=== PATIENT | female | born 1965 | race Caucasian/White ===

== ENCOUNTER 2017-06-02 23:10 | Observation (INO) | payer OTHER ==
[~2017-06-02] VITALS: Ht 160 cm; Wt 65.8 kg
--- NOTE | ~2017-06-02 | HP ---
History And Physical [address] [address] NAME: DEJA BUSH : 67 STATUS : ADM Allyssa PAT#: [id number] AGE: 51 ADM/REG DATE : 06/02/17 MR#: [id number] REPORT SERV DATE: 06/03/17 DICTATED BY: KERRY DIAZ DATE: 06/03/17 REPORT STATUS : Draft TRANSCRIBED BY: CARL DATE: 06/03/17 DATE OF ADMISSION: 06/02/2017 REASON FOR ADMISSION: Acute appendicitis. HISTORY OF PRESENT ILLNESS: Ms. Bush is a 51-year-old female, who presents with abdominal pain, nausea, vomiting for 24 hours. The pain is located in the right lower quadrant. Her white count is 11.1. CT scan shows thickening of the appendix with infiltration of the fat planes consistent with appendicitis. Please see Dr. Rendon's dictation from 06/02 for past medical history, past surgical history, allergies, medications, social history, family history. REVIEW OF SYSTEMS: As stated in the HPI, otherwise, negative. PHYSICAL EXAMINATION: VITAL SIGNS: 98.6, 72, 20, 150/64. GENERAL: Alert, white female, in no acute distress. HEENT: Normocephalic, atraumatic. EOMI. PERRLA. Oropharynx is clear. NECK: Supple. No lymphadenopathy. LUNGS: Clear to auscultation bilaterally. HEART: Regular rate and rhythm. ABDOMEN: Soft. She has tenderness and guarding in the right lower quadrant, but no rebound. EXTREMITIES: Moves all extremities well. NEUROLOGIC: Cranial nerves 2-12 intact. SKIN: No rashes. LABORATORY DATA: White count 11.1, H and H 14 and 40, platelets of 284. Electrolytes within normal range. Creatinine is 0.81. UA negative. CT scan as above. ASSESSMENT AND PLAN: Acute appendicitis. The patient will be n.p.o., IV Zosyn. We discussed lap versus open appendectomy. I have discussed risks, benefits, and alternatives. She understands and is willing to proceed. DAQUAN/CARL Kerry Diaz M.D. / [id number] CC: Kerry Diaz M.D. [address] And Physical [address] [place] [address] NAME: DEJA BUSH : 67 STATUS : ADM Allyssa PAT#: [id number] AGE: 51 ADM/REG DATE : 06/02/17 MR#: [id number] REPORT SERV DATE: 06/03/17 DICTATED BY: KERRY DIAZ DATE: 06/03/17 REPORT STATUS : Draft TRANSCRIBED BY: CARL DATE: 06/03/17 CHRISTIE ALAS
--- NOTE | ~2017-06-02 | OP ---
Record Of Operation [facility] [address] [place]. [address] NAME: DEJA BUSH : 67 STATUS : ADM Allyssa PAT#: [id number] AGE: 51 ADM/REG DATE : 06/02/17 MR#: [id number] REPORT SERV DATE: 06/03/17 DICTATED BY: NINO FONTANA DATE: 06/03/17 REPORT STATUS : Draft TRANSCRIBED BY: MODL DATE: 06/03/17 DATE OF PROCEDURE: 06/03/2017 PREOPERATIVE DIAGNOSIS: Acute appendicitis. POSTOPERATIVE DIAGNOSES: Acute appendicitis. PROCEDURE: Laparoscopic appendectomy. RESIDENT SURGEON: Faustino Levy M.D. ANESTHESIA: General. COMPLICATIONS: None. BLOOD LOSS: 5 mL. SPECIMEN: Appendix. DRAINS: None. INDICATION FOR PROCEDURE: Deja Bush is a 51-year-old woman who presented with a one-day history of right lower quadrant pain. CT scan confirmed acute appendicitis. Risks and benefits of appendectomy including bleeding, infection, injury to bowel, bladder, or ureter, conversion to an open procedure, incisional hernias, risk of anesthesia, heart attacks, stroke, DVT, PE were all discussed with the patient. She understood and wished to proceed. DESCRIPTION OF PROCEDURE: After informed consent was obtained, the patient was taken to the operating room and placed on operating table in supine position. General endotracheal anesthesia was induced by Anesthesia Staff without incident. A time-out was performed verifying the correct patient, position, procedure, equipment, and dosage of preoperative antibiotics. The abdomen was prepped and draped in sterile fashion. Infraumbilical incision made with a knife and carried down bluntly into the fascia. The fascia was grasped and elevated between clamps. The fascia was incised with a knife. Peritoneum was entered bluntly. The trocar was inserted. Abdomen was insufflated without incident. The laparoscope was inserted and it showed no evidence of injury secondary to trocar placement. The appendix was identified, it was inflamed and infected. Additional trocars were then placed. A 5 mm trocar in the right upper quadrant and a 10 mm trocar in left lower quadrant. The appendix was elevated. Base of the appendix was identified. A window was created in the mesoappendix. Base of the appendix was then divided with a FLYNN-45 blue load stapler. The mesoappendix was then divided with an Endo-FLYNN 45 vascular white load stapler. There was small bleeding from the mesoappendix staple line. A clip was placed and this controlled the bleeding. The appendix was placed in an endobag. And the right lower quadrant was irrigated with normal saline until clear. Both staple lines were inspected, and there was no evidence of bleeding noted. The additional trocars were removed under visualization with no bleeding from trocar sites was noted. The appendix was then brought Record Of Operation [address] [address] NAME: DEJA BUSH : 67 STATUS : ADM Allyssa PAT#: [id number] AGE: 51 ADM/REG DATE : 06/02/17 MR#: [id number] REPORT SERV DATE: 06/03/17 DICTATED BY: NINO FONTANA DATE: 06/03/17 REPORT STATUS : Draft TRANSCRIBED BY: CARL DATE: 06/03/17 out through the umbilical fascial incision. Abdomen was allowed to deflate. The umbilical fascia was closed with a [id number] 0 Vicryl suture. Wounds were all irrigated. It is closed with 4-0 Monocryl. Sterile dressings were placed. The patient tolerated the procedure and was taken to the postanesthesia care unit in satisfactory condition. DICTATED BY: MD SAMANTA Steward/CARL Nino Fontana M.D. / [id number] CC: Swati Padgett FRANLIN H
[2017-06-02 23:46] LABS: BASOPHILS 0.3 %; BASOPHILS ABSOLUTE 0.03 10/3/uL (0.0-0.16); EOSINOPHILS 0.5 %; EOSINOPHILS ABSOLUTE 0.05 10/3/uL (0.0-0.53); HEMOGLOBIN 14.1 g/dL (12.0-16.0); IMMATURE GRANULOCYTES 0.3 %; IMMATURE GRANULOCYTES ABSOLUTE 0.03 10/3/uL (0.0-0.11); LYMPHOCYTES 19.6 %; LYMPHOCYTES ABSOLUTE 2.17 10/3/uL (0.67-4.30); MEAN CORPUS HGB CONC 35.3 g/dL (32.0-36.0); MEAN CORPUSCULAR HEMOGLOB 33.8 pg (26.0-34.0); MEAN CORPUSCULAR VOLUME 95.9 fL (80-100); MEAN PLATELET VOLUME 9.8 fL (9.2-13.0); MONOCYTES 5.8 %; MONOCYTES ABSOLUTE 0.64 10/3/uL (0.21-1.20); NEUTROPHILS 73.5 %; NEUTROPHILS ABSOLUTE 8.13 10/3/uL (2.02-8.40); PLATELET COUNT 284 10/3/uL (150-400); RBC DISTRIBUTION WIDTH 12.2 % (12.0-16.0); RED CELL COUNT 4.17 10/6/uL (4.0-5.6); WHITE BLOOD CELLS 11.1 10/3/uL (4.5-10.5)
[2017-06-02 23:47] LABS: MANUAL DIFF NO %
[2017-06-02 23:50] LABS: ASCORBIC ACID (UR NOT ORDER) NEG (NEG); BILIRUBIN, URINE NEGATIVE (NEG); ER URINALYSIS TAT 0 Hrs 00 Mins; KETONE, URINE NEGATIVE (NEG); LEUKOCYTE ESTERASE(NOT OR NEG (NEG); NITRITE (URINE) NEG (NEG); WBC (NOT ORDERED) (RFLEX) < 1 (0-5)
[2017-06-03 00:04] LABS: ALBUMIN 4.4 G/DL (3.5-5.0); ALKALINE PHOSPHATASE 64 U/L (45-117); CALCIUM, SERUM 9.3 MG/DL (8.5-10.4); CHLORIDE, SERUM 104 MMOL/L (96-112); CO2 (CARBON DIOXIDE) 27 MMOL/L (24-34); CREATININE 0.81 MG/DL (0.55-1.02); GFR AFRICAN AMERICAN 98 ML/MIN (>=60); GFR NON AFRICAN AMERICAN 85 ML/MIN (>=60); GLOBULIN 4.3 G/DL (2.5-4.1); GLUCOSE, SERUM 104 MG/DL (60-99); POTASSIUM, SERUM 3.5 MMOL/L (3.5-5.3); SGOT(AST) 19 U/L (5-40); SGPT(ALT) 24 U/L (5-65); SODIUM, SERUM 139 MMOL/L (135-148); TOTAL BILIRUBIN 1.2 MG/DL (0-1.2); TOTAL PROTEIN 8.7 G/DL (6.0-8.5)
[2017-06-03 00:09] LABS: BUN (BLOOD UREA NITROGEN) 6 MG/DL (6-23)
[2017-06-03] MEDS ORDERED: NORCO1 TA2 PO (17:08)
== END 2017-06-03 19:00 | disposition home or self-care (01) ==
LOC: ER 23:10 → 5SO 23:59
PROVIDERS: Specialist
PROC: 0DTJ4ZZ Resection of Appendix, Percutaneous Endoscopic Approach (ICD-10-PCS; principal; 2017-06-02)
DX: K35.80 Unspecified acute appendicitis (principal); Z90.710 Acquired absence of both cervix and uterus; Z98.890 Other specified postprocedural states; Z88.5 Allergy status to narcotic agent
CPT/HCPCS: 74176; 80053; 81001; 83690; 85025; 88304; 96372; 96376; 99285; A9270-GY; G0378; J1170; J1885; J2250; J2405; J2543; J2710; J3010